=== PATIENT | male | born 1955 | race Caucasian/White ===

== ENCOUNTER 2018-12-16 10:58 | Day surgery (SDC) | payer OTHER ==
[2018-12-16] MEDS ORDERED: IBUPROFEN 400 MG TAB ONE (11:10)
--- NOTE | 2018-12-16 11:28 | RAD REPORT ---
EXAM DESCRIPTION: RAD - Hand Left 3 View - 12/16/2018 11:21 am CLINICAL HISTORY: laceration of index finger COMPARISON: No comparisons FINDINGS: Soft tissue laceration involves the distal second finger. Avulsion fracture involves the b ase of the distal phalanx of the second finger with small bony fragmentation noted.
[2018-12-16] MEDS ORDERED: CEFAZOLIN/SWI 1gm 1 GM/10 ML SYR ONE (12:08)
[2018-12-16] MEDS ORDERED: NA CHLORIDE 0.9% 0 ML ONE (12:26)
[2018-12-16] MEDS ORDERED: ONDANSETRON 4 MG/2 ML VIAL ONE (12:26)
[2018-12-16] MEDS ORDERED: MORPHINE 2 MG/ML SYR ONE (12:26)
--- NOTE | 2018-12-16 12:34 | EDPHYS ---
Physician Documentation [facility] Name: Shady Terrell Age: 63 yrs Sex: Male : 1955 Arrival Date: 12/16/2018 Time: 10:57 Bed 15 Private MD: ED Physician Johnny Mello HPI: 12/16 11:15 This 63 yrs old Male presents to ER via EMS with complaints of Laceration To cp Hand. 11:15 The patient has a laceration occurred at home, and using tablesaw. The laceration(s) cp is(are) located on the left hand. Onset: The symptoms/episode began/occurred just prior to arrival. Historical: - Allergies: 11:06 PENICILLINS; jl7 - Home Meds: 11:06 aspirin 81 mg Oral TbEC [Active]; lisinopril Oral [Active]; Metformin Oral [Active]; jl7 Glimepiride Oral [Active]; metoprolol tartrate Oral [Active]; Mirtazapine Oral [Active]; atorvastatin oral oral [Active]; paroxetine oral oral [Active]; - PMHx: 11:06 Diabetes - NIDDM; Hypertension; Hyperlipidemia; Depression; Anxiety; jl7 - PSHx: 11:06 Tonsillectomy; Liver biopsy; heart stents x 2; jl7 - Immunization history:: Adult Immunizations up to date, Last tetanus immunization: up to date < 5 years ago. - Social history:: Smoking status: Patient uses tobacco products, smokes two packs cigarettes per day. - Ebola Screening: : No symptoms or risks identified at this time. ROS: 11:20 Constitutional: Negative for body aches, chills, fever, poor PO intake. cp 11:20 Eyes: Negative for injury, pain, redness, and discharge. cp 11:20 Cardiovascular: Negative for chest pain, palpitations. 11:20 Respiratory: Negative for cough, shortness of breath, wheezing. 11:20 Abdomen/GI: Negative for abdominal pain, nausea, vomiting, and diarrhea. 11:20 MS/extremity: Positive for injury or acute deformity, laceration, paresthesias, of the palmar aspect of distal phalanx of left index finger. 11:20 All other systems are negative. Exam: 11:30 Constitutional: The patient appears in no acute distress, alert, awake, non-toxic, well cp developed, well nourished. 11:30 Head/Face: Normocephalic, atraumatic. cp 11:30 Eyes: Periorbital structures: appear normal, Conjunctiva: normal, no exudate, no injection, Lids and lashes: appear normal, bilaterally. 11:30 ENT: External ear(s): are unremarkable, Nose: is normal, Mouth: Lips: moist, Oral mucosa: moist, Posterior pharynx: is normal, airway is patent, no erythema, no exudate. 11:30 Neck: ROM/movement: is normal, is supple, without pain, no range of motions limitations, no nuchal rigidity. 11:30 Chest/axilla: Inspection: normal, Palpation: is normal, no crepitus, no tenderness. 11:30 Cardiovascular: Rate: normal, Rhythm: regular, Edema: is not appreciated, JVD: is not appreciated. 11:30 Respiratory: the patient does not display signs of respiratory distress, Respirations: normal, no use of accessory muscles, no retractions, no splinting, no tachypnea, labored breathing, is not present, Breath sounds: are clear throughout, no decreased breath sounds, no stridor, no wheezing. 11:30 Abdomen/GI: Inspection: abdomen appears normal, Palpation: abdomen is soft and non-tender, in all quadrants. 11:30 Musculoskeletal/extremity: Perfusion: the extremity is normally perfused throughout, decreased sensation, left index finger. 11:30 Skin: injury, laceration(s), of the palmar aspect of distal phalanx of left index finger, that can be described as clean, no foreign body, irregular, with mild bleeding. Vital Signs: 11:06 BP 132 / 70; Pulse 71; Resp 16 S; Temp 98.5(O); Pulse Ox 98% on R/A; Weight 113.4 kg jl7 (R); Pain 5/10; 12:15 BP 130 / 72; Pulse 73; Resp 16 S; Pulse Ox 100% on R/A; Pain 0/10; jl7 MDM: 11:04 Patient medically screened. cp 12:09 Physician consultation: Chivo Steele MD was called at 12:09, was contacted at 12:09, cp regarding patient's condition, requests OR to be notified and patient added to schedule today. 12:10 Data reviewed: vital signs, nurses notes, radiologic studies, plain films, I have cp discussed the patient's presentation/case with the attending Emergency Department Physician; and as a result, I will admit patient. 12:10 Test interpretation: by ED physician or midlevel provider: plain radiologic studies, cp xrays of left hand show fracture distal phalanx left index finger. Counseling: I had a detailed discussion with the patient and/or guardian regarding: the historical points, exam findings, and any diagnostic results supporting the discharge/admit diagnosis, radiology results, the need for further work-up and treatment in the hospital. 12/16 12:08 Order name: Basic Metabolic Panel; Complete Time: 06:44 cp 12/16 12:08 Order name: CBC with Diff; Complete Time: 06:44 cp 12/16 11:04 Order name: XRAY Hand LEFT 3 View; Complete Time: 06:44 cp 12/16 12:08 Order name: LFT's; Complete Time: 06:44 cp 12/16 12:08 Order name: PT-INR; Complete Time: 06:44 cp 12/16 12:08 Order name: XRAY Chest (1 view) cp 12/16 12:03 Order name: IV; Complete Time: 12:30 cp 12/16 12:08 Order name: EKG; Complete Time: 12:09 cp 12/16 12:08 Order name: Cardiac monitoring; Complete Time: 12:24 cp 12/16 12:08 Order name: Labs collected and sent; Complete Time: 12:24 cp 12/16 12:08 Order name: O2 Per Protocol; Complete Time: 12:24 cp 12/16 12:08 Order name: O2 Sat Monitoring; Complete Time: 12:24 cp 12/16 12:08 Order name: Wound Care; Complete Time: 12:30 cp 12/16 12:25 Order name: NPO; Complete Time: 12:30 cp Administered Medications: 11:17 Drug: Motrin 800 mg Route: PO; jl7 12:30 Follow up: Response: No adverse reaction jl7 12:20 Drug: Ancef 1 grams {Note: administered per protocol.} Route: IVPB; Infused Over: 30 jl7 mins; Site: right forearm; 12:25 Follow up: Response: No adverse reaction; IV Status: Completed infusion jl7 12:29 Not Given (pt leaving for surgery, denies pain): morphine 2 mg IVP once; (PAIN>8) RASS jl7 on ADMN: Combtv4, Very Agttd3, Agttd2, Rstlss1, AlertClm0, Drwsy-1, LtSdtn-2, ModSdtn-3, DpSdtn-4, UnArsble-5 x2 Disposition: 13:07 Co-signature as Attending Physician, Johnny Mello MD I agree with the assessment and kdr plan of care. Disposition: 12/16/18 12:33 Hospitalization ordered by Chivo Steele for Observation. Preliminary diagnosis is Displaced fracture of distal phalanx of left index finger - open. - Bed requested for Operating Room. - Status is Observation. jl7 - Condition is Stable. - Problem is new. - Symptoms have improved. UTI on Admission? No Signatures: Dispatcher [employer] EDMS Johnny Mello MD MD [facility] Yosi Bullock PA PA cp Leal, Jahala RN RN jl7 Corrections: (The following items were deleted from the chart) 12:40 12:33 Hospitalization Ordered by Chivo Steele MD for Observation. Preliminary jl7 diagnosis is Displaced fracture of distal phalanx of left index finger - open. Bed requested for Operating Room. Status is Observation. Condition is Stable. Problem is new. Symptoms have improved. UTI on Admission? No. cp
--- NOTE | 2018-12-16 12:34 | ER ---
Nurse's Notes [facility] Name: Shady Terrell Age: 63 yrs Sex: Male : 1955 Arrival Date: 12/16/2018 Time: 10:57 Bed 15 Private MD: Diagnosis: Displaced fracture of distal phalanx of left index finger-open Presentation: 12/16 10:59 Presenting complaint: EMS states: Laceration to left index finger from table saw, jl7 bleeding controlled. Transition of care: patient was not received from another setting of care. Complicating Factors: There are no complicating factors for this patient. Onset of symptoms was December 16, 2018. Risk Assessment: Do you want to hurt yourself or someone else? Patient reports no desire to harm self or others. Initial Sepsis Screen: Does the patient meet any 2 criteria? No. Patient's initial sepsis screen is negative. Does the patient have a suspected source of infection? No. Patient's initial sepsis screen is negative. Care prior to arrival: Bleeding of injury controlled. Injury cleansed. Injury dressed. 10:59 Method Of Arrival: EMS: [facility] jl7 10:59 Acuity: JIM 4 jl7 Triage Assessment: 11:06 General: Appears in no apparent distress. uncomfortable, Behavior is calm, cooperative, jl7 appropriate for age. Pain: Complains of pain in palmar aspect of distal phalanx of left index finger Pain currently is 5 out of 10 on a pain scale. Neuro: Level of Consciousness is awake, alert, obeys commands, Oriented to person, place, time, situation. Cardiovascular: Patient's skin is warm and dry. Respiratory: Airway is patent Respiratory effort is even, unlabored, Respiratory pattern is regular, symmetrical. Derm: Skin is pink, warm \T\ dry. Injury Description: Laceration sustained to palmar aspect of distal phalanx of left index finger is contaminated, jagged, 2.6 to 7.5 cm long. Historical: - Allergies: 11:06 PENICILLINS; jl7 - Home Meds: 11:06 aspirin 81 mg Oral TbEC [Active]; lisinopril Oral [Active]; Metformin Oral [Active]; jl7 Glimepiride Oral [Active]; metoprolol tartrate Oral [Active]; Mirtazapine Oral [Active]; atorvastatin oral oral [Active]; paroxetine oral oral [Active]; - PMHx: 11:06 Diabetes - NIDDM; Hypertension; Hyperlipidemia; Depression; Anxiety; jl7 - PSHx: 11:06 Tonsillectomy; Liver biopsy; heart stents x 2; jl7 - Immunization history:: Adult Immunizations up to date, Last tetanus immunization: up to date < 5 years ago. - Social history:: Smoking status: Patient uses tobacco products, smokes two packs cigarettes per day. - Ebola Screening: : No symptoms or risks identified at this time. Screenin:17 Abuse screen: Denies threats or abuse. Denies injuries from another. Nutritional jl7 screening: No deficits noted. Tuberculosis screening: No symptoms or risk factors identified. Fall Risk None identified. Assessment: 11:17 General: See triage assessment. Musculoskeletal: Range of motion: intact in all jl7 extremities. Injury Description: Laceration sustained to palmar aspect of distal phalanx of left index finger is contaminated, jagged, 2.6 to 7.5 cm long, not bleeding. 12:15 Reassessment: Patient appears in no apparent distress at this time. No changes from 7 previously documented assessment. Patient and/or family updated on plan of care and expected duration. Pain level reassessed. Patient is alert, oriented x 3, equal unlabored respirations, skin warm/dry/pink. Vital Signs: 11:06 BP 132 / 70; Pulse 71; Resp 16 S; Temp 98.5(O); Pulse Ox 98% on R/A; Weight 113.4 kg jl7 (R); Pain 5/10; 12:15 BP 130 / 72; Pulse 73; Resp 16 S; Pulse Ox 100% on R/A; Pain 0/10; jl7 ED Course: 10:57 Patient arrived in ED. jl7 11:01 Yosi Bullock PA is PHCP. cp 11:01 Johnny Mello MD is Attending Physician. cp 11:01 Triage completed. jl7 11:06 Arm band placed on right wrist. jl7 11:17 Patient has correct armband on for positive identification. Bed in low position. Call [facility] light in reach. Side rails up X 1. Pulse ox on. NIBP on. 11:21 XRAY Hand LEFT 3 View In Process Unspecified. EDMS 11:50 Rahul Marie, RN is Primary Nurse. jl7 12:15 Initial lab(s) drawn, by me, sent to lab. Inserted saline lock: 22 gauge in right jl7 forearm, using aseptic technique. Blood collected. 12:32 Chivo Steele MD is Hospitalizing Provider. cp 12:39 No provider procedures requiring assistance completed. Patient admitted, IV remains in jl7 place. intact, No redness/swelling at site. Administered Medications: 11:17 Drug: Motrin 800 mg Route: PO; jl7 12:30 Follow up: Response: No adverse reaction jl7 12:20 Drug: Ancef 1 grams {Note: administered per protocol.} Route: IVPB; Infused Over: 30 jl7 mins; Site: right forearm; 12:25 Follow up: Response: No adverse reaction; IV Status: Completed infusion jl7 12:29 Not Given (pt leaving for surgery, denies pain): morphine 2 mg IVP once; (PAIN>8) RASS jl7 on ADMN: Combtv4, Very Agttd3, Agttd2, Rstlss1, AlertClm0, Drwsy-1, LtSdtn-2, ModSdtn-3, DpSdtn-4, UnArsble-5 x2 Outcome: 12:33 Decision to Hospitalize by Provider. cp 12:40 Admitted to OR accompanied by nurse, family with patient, via wheelchair, with chart. jl7 12:40 Condition: stable 12:40 Discharge instructions given to patient, family, Instructed on the need for admit, Demonstrated understanding of instructions. 12:40 Patient left the ED. jl7 Signatures: Dispatcher [employer] EDMS Yosi Bullock PA PA cp Rahul Marie, RN RN jl7
[2018-12-16 12:36] LABS: Absolute Lymphocytes (CBC) 2.9 K/uL (0.7-4.9); Basophils % 0.9 % (0-1.3); Hematocrit 41.9 % (39.6-49.0); Lymphocytes % 38.8 % (15.3-44.8); RBC Red Blood Cell Count 4.42 M/uL (4.33-5.43)
[2018-12-16] MEDS ORDERED: NA CHLORIDE 0.9% 1,000 ML ONE (12:37)
[2018-12-16 12:46] LABS: Protime INR 1.08
[2018-12-16 12:57] LABS: Albumin 4.4 g/dL (3.4-5.0); Bilirubin Direct 0.2 mg/dL (0-0.2); Bilirubin Total 0.6 mg/dL (0.2-1.0); Potassium 4.4 mmol/L (3.5-5.1); Protein, Total 7.5 g/dL (6.4-8.2)
[2018-12-16] MEDS ORDERED: MIDAZOLAM HCL 2 MG/2 ML INJ ONE (13:21)
[2018-12-16] MEDS ORDERED: FENTANYL CITR 100 MCG/2 ML ONE (13:21)
[2018-12-16] MEDS ORDERED: PROPOFOL 200 MG/20 ML VIAL IV ONE (13:21)
[2018-12-16] MEDS ORDERED: GLYCOPYRROLATE 0.2 MG/ML SYR ONE (13:43)
[2018-12-16] MEDS ORDERED: KETOROLAC 30 MG/ML INJ ONE (14:26)
[2018-12-16] MEDS ORDERED: CODEINE 30MG/APAP 300MG TAB ONE (15:13)
[2018-12-16 15:43] VITALS: BP 101/50; TEMP 97.2; O2SAT 97
--- NOTE | 2018-12-17 01:30 | OP ---
Surgeon: Chivo Steele MD Preoperative Diagnosis: Open fracture of the left index finger distal phalanx. Postoperative Diagnosis: Open fracture of the left index finger distal phalanx. Procedure Performed: Debridement of skin and subcutaneous tissue, flap closure, flexor tendon advanc ement, and splint. Anesthesia: General. Procedure In Detail: After satisfactory induction of general seizure, left hand was prepped with Bet adine scrub, Betadine paint, dry sterile drapes placed in the usual manner. The arm was elevated, ex sanguinated with an Esmarch. Tourniquet inflated to 250 mmHg and placed on the [place] table. Scalp el was used to debride the skin and subcu tissue as needed. The wound was jet lavaged, irrigated wit h 3 L of dilute Betadine solution. The patient had transected the flexor tendon and bone attachment for it, about one-third of the joint was missing on the volar surface. Abhijit needles were placed thr ough the bone the nail bed and then a 3-0 Prolene suture was placed in the proximal tendon and passed through the Abhijit needles and pulled distally to advance the tendon to the bon y sites. After this was done, the tourniquet was released. Electrocautery was used for hemostasis. Then the flap was advanced and closed with 4 Prolene simple sutures. . DESI/EULALIO Voice ID: [id number] Report ID: [id number]
== END 2018-12-16 15:30 | disposition home or self-care (01) ==
LOC: ER 10:58 → OR 12:55
PROVIDERS: ATTEND Specialist
PROC: 0HXGXZZ Transfer Left Hand Skin, External Approach (ICD-10-PCS; 2018-12-16)
PROC: 0LS80ZZ Reposition Left Hand Tendon, Open Approach (ICD-10-PCS; principal; 2018-12-16 13:00)
DX: S62.631B Displaced fracture of distal phalanx of left index finger, initial encounter for open fracture (principal); W31.2XXA Contact with powered woodworking and forming machines, initial encounter; Y92.009 Unspecified place in unspecified non-institutional (private) residence as the place of occurrence of the external cause; Y99.9 Unspecified external cause status; E11.9 Type 2 diabetes mellitus without complications; I10 Essential (primary) hypertension; J44.9 Chronic obstructive pulmonary disease, unspecified; I25.10 Atherosclerotic heart disease of native coronary artery without angina pectoris; E78.5 Hyperlipidemia, unspecified; E66.9 Obesity, unspecified; F32.9 Major depressive disorder, single episode, unspecified; F41.9 Anxiety disorder, unspecified; F17.210 Nicotine dependence, cigarettes, uncomplicated; Z95.1 Presence of aortocoronary bypass graft; Z95.5 Presence of coronary angioplasty implant and graft; Z79.82 Long term (current) use of aspirin; Z88.0 Allergy status to penicillin
CPT/HCPCS: 26356; 14040; 85025; 80048; 36415; 85610; 82962 ×2; 80076; 73130; 96374; 99285; J2704; J2250; J3010; J2270; J0690; J7030; J2405

== ENCOUNTER → 2021-01-18 | Emergency (ER) | payer OTHER | LOC: ER 21:05 | DX: Z02.9 Encounter for administrative examinations, unspecified (principal) ==

== ENCOUNTER 2022-05-09 10:46 | Emergency (ER) | payer OTHER ==
[2022-05-09] MEDS ORDERED: CYCLOBENZAPRINE 10 MG TAB ONE (11:07)
[2022-05-09] MEDS ORDERED: KETOROLAC 30 MG/ML INJ ONE (11:07)
--- NOTE | 2022-05-09 12:10 | RAD REPORT ---
EXAM DESCRIPTION: [place] Single View05/09/2022 11:30 am CLINICAL HISTORY: BLUNT CHEST TRAUMA COMPARISON: Chest Single View dated 05/04/2016; CHEST SINGLE VIEW dated 09/03/2013; CHEST SINGLE VIEW da tere 01/27/2010; CHEST SINGLE VIEW dated 12/01/2007 TECHNIQUE: Portable AP view of the chest. FINDINGS: The lungs are clear. No pneumothorax or effusion. The cardiomediastinal contours are unrem arkable. Sequelae of median sternotomy again noted. IMPRESSION: No acute cardiopulmonary process.
--- NOTE | 2022-05-09 12:11 | RAD REPORT ---
EXAM DESCRIPTION: RAD - Ribs Left - 05/09/2022 11:30 am CLINICAL HISTORY: Fall COMPARISON: None. FINDINGS: Four views of the left ribs. No displaced rib fracture is evident. No aggressive rib lesion. No underlying pneumothorax, effusion, infiltrate or pulmunary contusion. Se quelae of prior median sternotomy. IMPRESSION: No acute displaced left rib fractures.
[2022-05-09 13:21] VITALS: BP 151/89; TEMP 98.3; O2SAT 98
--- NOTE | 2022-05-24 15:09 | ER ---
Nurse's Notes [facility] Name: Shady Terrell Age: 67 yrs Sex: Male : 1955 Arrival Date: 05/09/2022 Time: 10:48 Bed IW3 Private MD: Niecy Paulino Diagnosis: Left rib contusion Presentation: 05/09 10:55 Chief complaint: Left sided chest wall pain after mechanical fall from standing 5 days hb ago. Coronavirus screen: At this time, the client does not indicate any symptoms associated with coronavirus-19. Ebola Screen: No symptoms or risks identified at this time. Initial Sepsis Screen: Does the patient meet any 2 criteria? No. Patient's initial sepsis screen is negative. Does the patient have a suspected source of infection? No. Patient's initial sepsis screen is negative. Risk Assessment: Do you want to hurt yourself or someone else? Patient reports no desire to harm self or others. Onset of symptoms was May 04, 2022. 10:55 Method Of Arrival: Ambulatory hb 10:55 Acuity: JIM 4 hb Historical: - Allergies: 10:57 PENICILLINS; hb - PMHx: 10:57 Depression; Anxiety; Diabetes - NIDDM; Hyperlipidemia; Hypertension; hb - Immunization history:: Adult Immunizations up to date. - Social history:: Smoking status: Patient denies any tobacco usage or history of. Vital Signs: 10:55 BP 151 / 89; Pulse 61; Resp 18; Temp 98.3; Pulse Ox 98% on R/A; Weight 113.4 kg; Height hb 6 ft. 0 in. ; Pain 8/10; 10:55 Body Mass Index 33.91 (113.40 kg, 182.88 cm) hb 10:55 Pain Scale: Adult hb ED Course: 10:48 Patient arrived in ED. am2 10:48 Niecy Paulino is Private Physician. am2 10:51 [facility]. jh7 10:51 Sunil Kent MD is Attending Physician. jh7 10:57 Triage completed. hb 10:57 Arm band placed on. hb 11:31 XRAY Chest (1 view) In Process Unspecified. EDMS 11:32 XRAY Ribs LEFT In Process Unspecified. EDMS Administered Medications: 11:07 Drug: Ketorolac IM 60 mg Route: IM; Site: right deltoid; 11:07 Drug: Cyclobenzaprine PO 10 mg Route: PO; Outcome: 12:18 Discharge ordered by MD. lombardo 12:39 Patient left the ED. Signatures: Dispatcher [employer] Lizet Langford RN RN hb Moreno, Amanda am2 Carol Malone FNP JESSICA jh7
--- NOTE | 2022-05-24 15:09 | EDPHYS ---
Physician Documentation [facility] Name: Shady Terrell Age: 67 yrs Sex: Male : 1955 Arrival Date: 05/09/2022 Time: 10:48 Bed IW3 Private MD: Niecy Paulino ED Physician Sunil Kent HPI: 05/09 10:55 This 67 yrs old Male presents to ER via Ambulatory with complaints of Fall Injury, rib jh7 pain. 10:55 Details of fall: The patient fell from an upright position, while walking, and struck a jh7 concrete surface. Onset: The symptoms/episode began/occurred 5 day(s) ago. Associated injuries: The patient sustained injury to the chest, specifically the left lateral anterior chest. 67-year-old male presents with left-sided rib pain after a fall that occurred on Friday. Reports that he tripped over a curb and landed hard on his lower left ribs. Reports pain with inspiration and lying on his left side that wakes him from sleep. Reports the pain is reproducible. Denies chest pain.. Historical: - Allergies: 10:57 PENICILLINS; hb - PMHx: 10:57 Depression; Anxiety; Diabetes - NIDDM; Hyperlipidemia; Hypertension; hb - Immunization history:: Adult Immunizations up to date. - Social history:: Smoking status: Patient denies any tobacco usage or history of. ROS: 10:55 Constitutional: Negative for fever, chills, and weight loss, Eyes: Negative for injury, jh7 pain, redness, and discharge, Neck: Negative for injury, pain, and swelling, Respiratory: Negative for shortness of breath, cough, wheezing, and pleuritic chest pain, Abdomen/GI: Negative for abdominal pain, nausea, vomiting, diarrhea, and constipation, Back: Negative for injury and pain, MS/Extremity: Negative for injury and deformity, Skin: Negative for injury, rash, and discoloration, Neuro: Negative for headache, weakness, numbness, tingling, and seizure. 10:55 Cardiovascular: Positive for L rib pain. 10:55 All other systems are negative. Exam: 10:55 Constitutional: This is a well developed, well nourished patient who is awake, alert, jh7 and in no acute distress. Head/Face: Normocephalic, atraumatic. Neck: Trachea midline, no thyromegaly or masses palpated, and no cervical lymphadenopathy. Supple, full range of motion without nuchal rigidity, or vertebral point tenderness. No Meningismus. Cardiovascular: Regular rate and rhythm with a normal S1 and S2. No gallops, murmurs, or rubs. Normal PMI, no JVD. No pulse deficits. Respiratory: Lungs have equal breath sounds bilaterally, clear to auscultation and percussion. No rales, rhonchi or wheezes noted. No increased work of breathing, no retractions or nasal flaring. Abdomen/GI: Soft, non-tender, with normal bowel sounds. No distension or tympany. No guarding or rebound. No evidence of tenderness throughout. Back: No spinal tenderness. No costovertebral tenderness. Full range of motion. Skin: Warm, dry with normal turgor. Normal color with no rashes, no lesions, and no evidence of cellulitis. MS/ Extremity: Pulses equal, no cyanosis. Neurovascular intact. Full, normal range of motion. Neuro: Awake and alert, GCS 15, oriented to person, place, time, and situation. Motor strength 5/5 in all extremities. Sensory grossly intact. Normal gait. 10:55 Chest/axilla: Inspection: normal, Palpation: tenderness, that is moderate, of the left lateral anterior chest, L lower ribs, that totally reproduces the patient's complaints. Vital Signs: 10:55 BP 151 / 89; Pulse 61; Resp 18; Temp 98.3; Pulse Ox 98% on R/A; Weight 113.4 kg; Height hb 6 ft. 0 in. ; Pain 8/10; 10:55 Body Mass Index 33.91 (113.40 kg, 182.88 cm) hb 10:55 Pain Scale: Adult hb MDM: 10:51 Patient medically screened. [facility] 12:20 Differential diagnosis: contusion, fracture, strain. Data reviewed: vital signs, nurses [facility] notes, radiologic studies, plain films. I considered the following discharge prescriptions or medication management in the emergency department Medications were administered in the Emergency Department. See MAR. Independent interpretation of the following test(s) in the Emergency Department X-Ray: My interpretation is No acute findings. Test considered but Not performed: CT: CT chest abdomen pelvis considered to further rule out rib fracture. CT not ordered because the patient refused due to increased exposure to radiation. He reports that he feels comfortable treating it as a rib fracture.. Care significantly affected by the following chronic conditions: Diabetes, Hypertension. Counseling: I had a detailed discussion with the patient and/or guardian regarding: the historical points, exam findings, and any diagnostic results supporting the discharge/admit diagnosis, to return to the emergency department if symptoms worsen or persist or if there are any questions or concerns that arise at home. 05/09 11:02 Order name: XRAY Chest (1 view); Complete Time: 12:12 jh7 05/09 11: Order name: XRAY Ribs LEFT; Complete Time: 12:12 jh7 Administered Medications: 11: Drug: Ketorolac IM 60 mg Route: IM; Site: right deltoid; hb 11:07 Drug: Cyclobenzaprine PO 10 mg Route: PO; hb Disposition: 15:23 Co-signature as Attending Physician, Sunil Kent MD I reviewed the patient's care rn provided by the Advanced Practice Provider and agree with the diagnosis and treatment plan. Disposition Summary: 05/09/22 12:18 Discharge Ordered Location: Home [facility] Problem: new [facility] Symptoms: have improved jh7 Condition: Stable 7 Diagnosis - Left rib contusion 7 Followup: [facility] - With: Private Physician - When: 2 - 3 days - Reason: Recheck today's complaints Discharge Instructions: - Discharge Summary Sheet 7 - Rib Contusion 7 - Rib Fracture [facility] Forms: - Medication Reconciliation Form 7 - Thank You Letter [facility] Prescriptions: - Zanaflex 4 mg Oral Tablet - take 1 tablet by ORAL route every 8 hours As needed; 20 tablet; Refills: 0, jh7 Product Selection Permitted Signatures: Dispatcher [employer] EDSunil Valdovinos MD MD rn Baxter, Heather, RN RN hb Hadash, Jennifer, FNP [employer] [facility] Corrections: (The following items were deleted from the chart) 12:27 12:14 Chest Abdomen Pelvis Wo Con+CT.RAD.BRZ ordered. EDPA EDMS
== END 2022-05-09 12:39 | disposition home or self-care (01) ==
LOC: ER 10:46
DX: S20.20XA Contusion of thorax, unspecified, initial encounter (principal)
CPT/HCPCS: 71045; 96372; 99283

== ENCOUNTER 2023-10-25 22:04 | Emergency (ER) | payer MEDICAID ==
[2023-10-25] MEDS ORDERED: LIDOCAINE HCL JELLY 2% 6 ML SYRINGE TOP ONE (22:44)
--- NOTE | 2023-10-25 23:52 | EDPHYS ---
Physician Documentation [facility] Name: Shady Terrell Age: 68 yrs Sex: Male : 1955 Arrival Date: 10/25/2023 Time: 22:04 Bed 15 Private MD: ED Physician Kristofer Chowdhury HPI: 10/24 22:43 This 68 yrs old Male presents to ER via Ambulatory with complaints of Head kb Injury-Adult, Laceration To Head. 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 States he tripped down some steps and hit head on a concrete bird feeder. Denies loc or any other injuries. . Historical: - Allergies: 22:29 PENICILLINS; vc1 - Home Meds: 22:56 aspirin 81 mg Oral TbEC [Active]; atorvastatin Oral [Active]; Glimepiride Oral al5 [Active]; lisinopril Oral [Active]; Metformin Oral [Active]; Metoprolol Tartrate Oral [Active]; Mirtazapine Oral [Active]; paroxetine Oral [Active]; - PMHx: 22:29 Anxiety; Hyperlipidemia; Depression; Diabetes - NIDDM; Hypertension; vc1 - Immunization history:: Client reports receiving the 2nd dose of the Covid vaccine, Last tetanus immunization: > 10 years ago. - Infectious Disease History:: Denies. - Social history:: Smoking status: Patient reports the use of cigarette tobacco products, smokes three packs cigarettes per day. ROS: 22:42 Constitutional: As per HPI kb Exam: 22:42 Constitutional: This is a well developed, well nourished patient who is awake, alert, kb and in no acute distress. Eyes: Pupils equal round and reactive to light, extra-ocular motions intact. Lids and lashes normal. Conjunctiva and sclera are non-icteric and not injected. Cornea within normal limits. Periorbital areas with no swelling, redness, or edema. ENT: Moist Mucous membranes Cardiovascular: Regular rate Respiratory: Respirations even and unlabored. No increased work of breathing. Talking in full sentences Skin: Warm, dry with normal turgor. Normal color. MS/ Extremity: Pulses equal, no cyanosis. Neurovascular intact. Full, normal range of motion. Neuro: Awake and alert, GCS 15, oriented to person, place, time, and situation. Moves all extremities. Normal gait. 22:42 Head/face: Noted is no obvious of injury or deformity except a laceration(s), that is superficial, 4 cm(s), of the right side of the back of head, Vital Signs: 22:30 Weight 108.86 kg; Height 6 ft. 0 in. ; Pain 3/10; vc1 22:32 BP 110 / 66; Pulse 68; Resp 17; Temp 98.2; Pulse Ox 100% ; vc1 22:30 Body Mass Index 32.55 (108.86 kg, 182.88 cm) vc1 22:30 Pain Scale: Adult vc1 [place] Coma Score: 22:28 Eye Response: spontaneous(4). Motor Response: obeys commands(6). Verbal Response: vc1 oriented(5). Total: 15. 23:33 Eye Response: spontaneous(4). Motor Response: obeys commands(6). Verbal Response: kb oriented(5). Total: 15. Laceration: 23:33 Wound Repair of 4cm ( 1.6in ) subcutaneous laceration to right side of the back of head. Irregularly shaped.. Distal neuro/vascular/tendon intact. Anesthesia: Topical anesthetic administered with 1% lidocaine. Wound prep: Extensive cleansing, Wound irrigation. Skin closed with 4 [place] using staple gun. Patient tolerated well. MDM: 22:13 Patient medically screened. kb 23:33 Differential diagnosis: Hematoma on Intracranial bleed- Concussion. Data reviewed: vital signs, nurses notes. Counseling: I had a detailed discussion with the patient and/or guardian regarding the historical points, exam findings, and any diagnostic results supporting the discharge/admit diagnosis, radiology results, the need for outpatient follow up, a family practitioner, to return to the emergency department if symptoms worsen or persist or if there are any questions or concerns that arise at home. 10/24 22:31 Order name: CT Head Brain wo Cont 10/24 22:31 Order name: Wound Care: clean and put staple gun at bedside please; Complete Time: 23:21kb Administered Medications: 22:48 Drug: Lidocaine Mucous Membrane Gel 2 % 1 application Mucous Membrane once; let sit al5 15-20 minutes prior to cleaning Route: Mucous Membrane; 23:21 Follow up: Response: No adverse reaction; No adverse reaction; pain subsided, came back al5 post cleaning, placed another dose on wound Disposition: 10/25 00:34 Co-signature as Attending Physician, Kristofer Chowdhury MD I agree with the assessment sp4 and plan of care. I reviewed the patient's care provided by the Advanced Practice Provider and agree with the diagnosis and treatment plan. Disposition Summary: 10/25/23 23:52 Discharge Ordered Notes: Keep clean and dryHave arturo removed in 7 days
Location: Home kb Condition: Stable kb Diagnosis - Unspecified injury of head, initial encounter kb - Scalp Laceration/ Open wound of scalp kb Followup: kb - With: Emergency Department - When: As needed - Reason: Worsening of condition Followup: kb - With: Private Physician - When: 2 - 3 days - Reason: Recheck today's complaints, Continuance of care, Re-evaluation by your physician Discharge Instructions: - Discharge Summary Sheet kb - Laceration Care, Adult, [id number] kb - Head Injury, Adult, Kine-to-[id number] kb Forms: - Medication Reconciliation Form kb - Antibiotic Education kb - Prescription Opioid Use kb - Patient Portal Instructions kb - Leadership Thank You Letter kb Signatures: Dispatcher [employer] EDMS Destiny Chavez, HOSPICE ADMINISTRATOR-C HOSPICE ADMINISTRATOR-Belén Palacio RN RN vc1 Kristofer Chowdhury MD MD sp4 Carlee Sinclair RN RN al5 Corrections: (The following items were deleted from the chart) 10/24 22:32 22:32 Head Brain Wo [id number] ordered. EDMS EDMS
--- NOTE | 2023-10-25 23:52 | ER ---
Nurse's Notes [facility] Name: Shady Terrell Age: 68 yrs Sex: Male : 1955 Arrival Date: 10/25/2023 Time: 22:04 Bed 15 Private MD: Diagnosis: Unspecified injury of head, initial encounter;Scalp Laceration/ Open wound of scalp Presentation: 10/24 22:28 Chief complaint: Patient states: Fell and hit head on concrete bird bath. Coronavirus vc1 screen: Client denies travel out of the [place] in the last 14 days. At this time, the client does not indicate any symptoms associated with coronavirus-19. Ebola Screen: Patient negative for fever greater than or equal to 101.5 degrees Fahrenheit, and additional compatible Ebola Virus Disease symptoms Patient denies exposure to infectious person. Patient denies travel to an Ebola-affected area in the 21 days before illness onset. No symptoms or risks identified at this time. Mechanism of Injury: resulted from a fall, from a standing position. Initial Sepsis Screen: Does the patient meet any 2 criteria? No. Patient's initial sepsis screen is negative. Does the patient have a suspected source of infection? No. Patient's initial sepsis screen is negative. Risk Assessment: Do you want to hurt yourself or someone else? Patient reports no desire to harm self or others. Onset of symptoms was October 25, 2023. 22:28 Method Of Arrival: Ambulatory vc1 22:28 Acuity: JIM 2 vc1 Triage Assessment: 22:55 General: Appears in no apparent distress. Behavior is calm, cooperative. Pain: al5 Complains of pain in right side of the back of head. EENT: No signs and/or symptoms were reported regarding the EENT system. Neuro: Level of Consciousness is awake, alert, obeys commands, Oriented to person, place, time, situation, Reports pain R side of back of head, laceration to back of head. Cardiovascular: Patient's skin is warm and dry. Respiratory: Airway is patent Respiratory effort is even, unlabored, Respiratory pattern is regular, symmetrical. GI: No signs and/or symptoms were reported involving the gastrointestinal system. : No signs and/or symptoms were reported regarding the genitourinary system. Derm: Reports laceration to back of head. Musculoskeletal: No signs and/or symptoms reported regarding the musculoskeletal system. Injury Description: Laceration sustained to right side of the back of head. Historical: - Allergies: 22:29 PENICILLINS; vc1 - Home Meds: 22:56 aspirin 81 mg Oral TbEC [Active]; atorvastatin Oral [Active]; Glimepiride Oral al5 [Active]; lisinopril Oral [Active]; Metformin Oral [Active]; Metoprolol Tartrate Oral [Active]; Mirtazapine Oral [Active]; paroxetine Oral [Active]; - PMHx: 22:29 Anxiety; Hyperlipidemia; Depression; Diabetes - NIDDM; Hypertension; vc1 - Immunization history:: Client reports receiving the 2nd dose of the Covid vaccine, Last tetanus immunization: > 10 years ago. - Infectious Disease History:: Denies. - Social history:: Smoking status: Patient reports the use of cigarette tobacco products, smokes three packs cigarettes per day. Screenin:30 Abuse screen: Denies threats or abuse. Nutritional screening: No deficits noted. vc1 Tuberculosis screening: No symptoms or risk factors identified. 22:52 [facility] ED Fall Risk Assessment (Adult) History of falling in the last 3 months, al5 including since admission Yes- single mechanical fall (1 pt) Confusion or Disorientation No (0 pts) Intoxicated or Sedated No (0 pts) Impaired Gait No (0 pts) Mobility Assist Device Used No (0 pt) Altered Elimination No (0 pt) Score/Fall Risk Level 0 - 2 = Low Risk Oriented to surroundings, Maintained a safe environment, Hourly rounding (assess needs \T\ fall precautionary measures) done. Assessment: 22:53 General: Appears in no apparent distress. Behavior is calm, cooperative. Pain: al5 Complains of pain in right side of the back of head. Neuro: Level of Consciousness is awake, alert, obeys commands, Oriented to person, place, time, situation. Cardiovascular: Patient's skin is warm and dry. Respiratory: Airway is patent Respiratory effort is even, unlabored, Respiratory pattern is regular, symmetrical. GI: No signs and/or symptoms were reported involving the gastrointestinal system. : No signs and/or symptoms were reported regarding the genitourinary system. EENT: No signs and/or symptoms were reported regarding the EENT system. Derm: Wound noted right side of the back of head Wound is laceration. Musculoskeletal: No signs and/or symptoms reported regarding the musculoskeletal system. Injury Description: Laceration sustained to right side of the back of head is not bleeding, was bleeding before arrival was sustained 30-60 minutes ago. a small amount of bleeding noted at this time. states he fell backwards on his porch into a concrete bird bath. Vital Signs: 22:30 Weight 108.86 kg; Height 6 ft. 0 in. ; Pain 3/10; vc1 22:32 BP 110 / 66; Pulse 68; Resp 17; Temp 98.2; Pulse Ox 100% ; vc1 22:30 Body Mass Index 32.55 (108.86 kg, 182.88 cm) vc1 22:30 Pain Scale: Adult vc1 [place] Coma Score: 22:28 Eye Response: spontaneous(4). Motor Response: obeys commands(6). Verbal Response: vc1 oriented(5). Total: 15. 23:33 Eye Response: spontaneous(4). Motor Response: obeys commands(6). Verbal Response: kb oriented(5). Total: 15. ED Course: 22:09 Patient arrived in ED. mr 22:13 ScottDestiny, [facility] kb 22:13 Kristofer Chowdhury MD is Attending Physician. kb 22:29 Triage completed. vc1 22:30 Arm band placed on right wrist. vc1 22:38 Carlee Sinclair, RN is Primary Nurse. al5 22:52 Patient has correct armband on for positive identification. Bed in low position. Call al5 light in reach. Side rails up X 1. Provided Education on: medication and procedure. 22:52 Assist provider with laceration repair. Patient did not have IV access during this al5 emergency room visit. 22:55 CT Head Brain wo Cont In Process Unspecified. EDMS Administered Medications: 22:48 Drug: Lidocaine Mucous Membrane Gel 2 % 1 application Mucous Membrane once; let sit al5 15-20 minutes prior to cleaning Route: Mucous Membrane; 23:21 Follow up: Response: No adverse reaction; No adverse reaction; pain subsided, came back al5 post cleaning, placed another dose on wound Medication: 23:58 VIS not applicable for this client. al5 Outcome: 23:52 Discharge ordered by . kb 23:58 Discharged to home ambulatory, al5 23:58 Condition: good 23:58 Discharge instructions given to patient, Instructed on discharge instructions, follow up and referral plans. Demonstrated understanding of instructions, follow-up care, 23:59 Patient left the ED. al5 Signatures: Dispatcher [employer] EDDestiny Weber, HADOOP ANALYST-C HADOOP ANALYST-CkLesly Thomason, Reg Reg mr Belén Matthew, FREDIS RN vc1 Carlee Sinclair RN RN al5
[2023-10-26 00:11] VITALS: BP 110/66; TEMP 98.2; O2SAT 100
--- NOTE | 2023-10-27 14:43 | RAD REPORT ---
EXAM DESCRIPTION: CT - Head Brain Wo Cont - 10/26/2023 6:40 am CLINICAL HISTORY: The patient is 68 years old and is Male; PAIN TECHNIQUE: Axial computed tomography images of the head/brain without intravenous contrast. Sagitt al and coronal reformatted images were created and reviewed. This CT exam was performed using one o r more of the following dose reduction techniques: automated exposure control, adjustment of the mA and/or kV according to patient size, and/or use of iterative reconstruction technique. COMPARISON: No relevant prior studies available. FINDINGS: Brain: Unremarkable. No hemorrhage. No significant white matter disease. No edema. Ventricles: Unremarkable. No ventriculomegaly. Bones/joints: Right otomastoid effusion. No acute fracture. Soft tissues: Right posterior scalp swelling. Sinuses: Unremarkable as visualized. Mastoid air cells: Unremarkable as visualized. No mastoid effusion. IMPRESSION: No acute intracranial abnormality. Electronically signed by: Tian Nunes MD 10/25/2023 11:47 PM CDT RP 8 Due to temporary technical issues with the PACS/Fluency reporting system, reports are being signed by the in house radiologist without review as a courtesy to ensure prompt reporting. The interpreting r adiologist is fully responsible for the content of the report.
== END 2023-10-25 23:59 | disposition home or self-care (01) ==
LOC: ER 22:04
PROC: 0HQ0XZZ Repair Scalp Skin, External Approach (ICD-10-PCS; principal; 2023-10-25)
DX: S01.01XA Laceration without foreign body of scalp, initial encounter (principal); W01.118A Fall on same level from slipping, tripping and stumbling with subsequent striking against other sharp object, initial encounter
CPT/HCPCS: 12032; 70450; 99283